=== PATIENT | male | born 1960 | race Two or more races ===

== ENCOUNTER → 2020-05-18 | Outpatient (CLI) | payer MEDICAID | END | disposition home or self-care (01) | LOC: LAB 09:15 | PROVIDERS: ATTEND Nurse Practitioner Family | DX: Z20.828 Contact with and (suspected) exposure to other viral communicable diseases (principal) ==

== ENCOUNTER → 2020-08-19 | Outpatient (CLI) | payer MEDICAID | END | disposition home or self-care (01) | LOC: LAB 13:20 | PROVIDERS: ATTEND Internal Medicine | DX: N48.5 Ulcer of penis (principal) | CPT/HCPCS: 87205 ==